=== PATIENT | male | born 1940 | race African-American/Black ===

== ENCOUNTER 2016-10-15 21:50 | Emergency (ER) | payer MEDICARE, OTHER ==
[~2016-10-15] VITALS: Ht 177.8 cm; Wt 81.6 kg
[~2016-10-15 21:50] MED LIST: NKM
--- NOTE | 2016-10-15 21:57 | Emergency Room Report ---
History of Present Illness General Chief Complaint: Pain Source: Patient, EMS Present Illness HPI Patient is 76-year-old male brought in by EMS after increased generalized weakness. Patient [place] bus [place]. Patient was noted to have a recent alcohol use. The patient denies any recent trauma. History is a markedly limited by patient's poor cooperation. Patient states he is having bilateral leg pain between his knees and his hips. He would not state how this began. History is markedly limited by patient's poor cooperation Allergies: Coded Allergies: PENICILLINS (Verified Allergy, Intermediate, RASH, 12/30/11) Patient History Reviewed Nursing Documentation: PMH: Agreed, PSxH: Agreed Nursing Documentation-PMH Past Medical History: No Stated History Hx Cardiac Problems: Yes Hx Cancer: No Hx Gastrointestinal Problems: Yes Hx Neurological Problems: Yes Hx Dizziness: Yes - PRIOR TO ADMISSION Hx Syncope: Yes - PRIOR TO ADMISSION Hx Numbness: Yes - PT SAYS HE PASSED OUT TODAY PTIOR TO ADMISSION Review of Systems All Other Systems: limited - by mental status Physical Exam Vital Signs Date Time Temp Pulse Resp B/P (MAP) Pulse Ox O2 Delivery O2 Flow Rate FiO2 10/15/16 21:39 97.5 75 18 118/75 98 Room Air Sp02 EP Interpretation: reviewed, normal General Appearance: normal inspection, well appearing, no apparent distress, alert, thin Head: atraumatic ENT: normal ENT inspection, hearing grossly normal, normal voice Neck: normal inspection, full range of motion, supple, no bony tend Respiratory: normal inspection, lungs clear, normal breath sounds, no respiratory distress, no retraction, no wheezing Cardiovascular #1: regular rate, rhythm, no edema Gastrointestinal: normal inspection, normal bowel sounds, non tender, soft, no guarding, no hernia Genitourinary: no CVA tenderness Musculoskeletal: normal inspection, back normal, normal range of motion Neurologic: normal inspection, alert, responsive, oriented - slurred speech Psychiatric: normal inspection, judgement/insight normal, mood/affect normal Skin: normal inspection, normal color, no rash Medical Decision Making Diagnostic Impression: Primary Impression: Alcohol intoxication Additional Impression: Peripheral neuropathy ER Course Patient presented for bilateral leg pain and altered mental status. Differential diagnosis included but was not limited to ischemic stroke, subarachnoid hemorrhage, hypoglycemia, spinal cord injury, neurodegenerative disorder, urinary tract infection, hypoxemia.Because of complexity of patient's case laboratory testing were ordered. Patient appears to be moderately intoxicated with alcohol. Patient was given IV thiamine for possible neuropathy. Patient was noted to have elevated blood alcohol. This was observed in the emergency department with improvement in his mental status. The patient was able to ambulate without assistance his time of discharge. Patient was able any with a steady gait Labs Test 10/15/16 22:40 White Blood Count 5.4 K/UL (4.8-10.8) Red Blood Count 3.64 M/UL (4.70-6.10) Hemoglobin 11.8 G/DL (14.2-18.0) Hematocrit 34.4 % (42.0-52.0) Mean Corpuscular Volume 95 FL (80-99) Mean Corpuscular Hemoglobin 32.4 PG (27.0-31.0) Mean Corpuscular Hemoglobin Concent 34.2 G/DL (32.0-36.0) Red Cell Distribution Width 13.2 % (11.6-14.8) Platelet Count 180 K/UL (150-450) Mean Platelet Volume 4.8 FL (6.5-10.1) Neutrophils (%) (Auto) 37.1 % (45.0-75.0) Lymphocytes (%) (Auto) 42.8 % (20.0-45.0) Monocytes (%) (Auto) 12.1 % (1.0-10.0) Eosinophils (%) (Auto) 5.1 % (0.0-3.0) Basophils (%) (Auto) 2.9 % (0.0-2.0) Prothrombin Time 10.0 SEC (9.30-11.50) Prothromb Time International Ratio 1.0 (0.9-1.1) Activated Partial Thromboplast Time 24 SEC (23-33) Sodium Level 144 mEQ/L (135-145) Potassium Level 3.6 mEQ/L (3.4-4.9) Chloride Level 110 mEQ/L (98-107) Carbon Dioxide Level 20 mEQ/L (20-30) Anion Gap 14 (5-15) Blood Urea Nitrogen 15 mg/dL (7-23) Creatinine 1.3 mg/dL (0.7-1.2) Estimat Glomerular Filtration Rate mL/min (>60) Glucose Level 89 mg/dL (74-106) Calcium Level 9.2 mg/dL (8.6-10.2) Total Bilirubin 0.4 mg/dL (0.0-1.2) Aspartate Amino Transf (AST/SGOT) 47 U/L (5-40) Alanine Aminotransferase (ALT/SGPT) 28 U/L (3-41) Alkaline Phosphatase 74 U/L (40-129) Troponin I < 0.30 ng/mL (<=0.30) Total Protein 8.3 g/dL (6.6-8.7) Albumin 4.4 g/dL (3.5-5.2) Globulin 3.9 g/dL Albumin/Globulin Ratio 1.1 (1.0-2.7) Lipase 46 U/L (< 60) Serum Alcohol 350 mg/dL Last Vital Signs Date Time Temp Pulse Resp B/P (MAP) Pulse Ox O2 Delivery O2 Flow Rate FiO2 10/15/16 21:39 97.5 75 18 118/75 98 Room Air Status: improved Disposition: HOME, SELF-CARE Condition: Stable Sb Alfonso Oct 15, 2016 21:56
[2016-10-15] MEDS ORDERED: Thiamine HCl 100 MG in D5W 55 ML IVPB ONE (22:00)
[2016-10-15] MEDS ORDERED: Thiamine HCl 100mg/ml 2 ml Inj ONE (22:46)
[2016-10-15 23:18] VITALS: BP 117/80
[2016-10-15 23:19] LABS: BASOPHILS % (AUTO) 2.9 % (0.0-2.0); EOSINOPHILS % (AUTO) 5.1 % (0.0-3.0); LYMPHOCYTES % (AUTO) 42.8 % (20.0-45.0); MEAN CORPUSCULAR HEMOGLOBIN 32.4 PG (27.0-31.0); MEAN CORPUSCULAR HGB CONC 34.2 G/DL (32.0-36.0); MEAN CORPUSCULAR VOLUME 95 FL (80-99); MEAN PLATELET VOLUME 4.8 FL (6.5-10.1); MONOCYTES % (AUTO) 12.1 % (1.0-10.0); NEUTROPHILS % (AUTO) 37.1 % (45.0-75.0); PLATELET COUNT 180 K/UL (150-450); RED BLOOD COUNT 3.64 M/UL (4.70-6.10); RED CELL DISTRIBUTION WIDTH 13.2 % (11.6-14.8); WHITE BLOOD COUNT 5.4 K/UL (4.8-10.8)
[2016-10-15 23:30] LABS: TROPONIN I < 0.30 ng/mL (<=0.30)
[2016-10-15 23:33] LABS: ALANINE AMINOTRANSFERASE 28 U/L (3-41); ALBUMIN/GLOBULIN RATIO 1.1 (1.0-2.7); ANION GAP 14 (5-15); ASPARTATE AMINO TRANSFERASE 47 U/L (5-40); CALCIUM 9.2 mg/dL (8.6-10.2); CARBON DIOXIDE 20 mEQ/L (20-30); CHLORIDE 110 mEQ/L (98-107); CREATININE 1.3 mg/dL (0.7-1.2); HEMOLYSIS 5; LIPASE 46 U/L (< 60); POTASSIUM 3.6 mEQ/L (3.4-4.9); SODIUM 144 mEQ/L (135-145); TOTAL PROTEIN 8.3 g/dL (6.6-8.7)
[2016-10-16 01:00] VITALS: BP 104/64
[2016-10-16 03:00] VITALS: BP 110/71
[2016-10-16 04:47] VITALS: BP 105/56
[2016-10-16 06:20] VITALS: BP 101/60
== END 2016-10-16 06:20 | disposition home or self-care (01) ==
LOC: EDBD 21:50 → EMR 22:02
DX: F10.129 Alcohol abuse with intoxication, unspecified (principal); G62.9 Polyneuropathy, unspecified; R41.82 Altered mental status, unspecified; M79.605 Pain in left leg; M79.604 Pain in right leg; Z88.0 Allergy status to penicillin
CPT/HCPCS: 36415; 80053; 83690; 84484; 85025; 85610; 85730; 96374; 99284; G0480; 80329

== ENCOUNTER 2017-02-01 13:04 | Outpatient (RCR) | payer MEDICARE, OTHER | END 2017-02-05 | disposition home or self-care (01) | LOC: WCC 13:04 | DX: L97.523 Non-pressure chronic ulcer of other part of left foot with necrosis of muscle (principal); M86.68 Other chronic osteomyelitis, other site; J44.9 Chronic obstructive pulmonary disease, unspecified; I25.10 Atherosclerotic heart disease of native coronary artery without angina pectoris; M19.90 Unspecified osteoarthritis, unspecified site; F17.200 Nicotine dependence, unspecified, uncomplicated; Z88.0 Allergy status to penicillin | CPT/HCPCS: G0277; G0463 ==

== ENCOUNTER 2017-02-08 11:35 | Outpatient (RCR) | payer MEDICARE, OTHER | END 2017-03-08 | disposition home or self-care (01) | LOC: WCC 11:35 | DX: L97.523 Non-pressure chronic ulcer of other part of left foot with necrosis of muscle (principal); M86.68 Other chronic osteomyelitis, other site; Z88.0 Allergy status to penicillin; J44.9 Chronic obstructive pulmonary disease, unspecified; I25.10 Atherosclerotic heart disease of native coronary artery without angina pectoris; M19.90 Unspecified osteoarthritis, unspecified site | CPT/HCPCS: G0277; G0463 ==

== ENCOUNTER 2017-03-09 10:00 | Outpatient (RCR) | payer MEDICARE, OTHER ==
[~2017-03-09] VITALS: Ht 167.6 cm; Wt 45.4 kg
[2017-03-10] MEDS ORDERED: Hydrocortisone 1% Cr 15gm TOPIC ONE (15:45)
== END 2017-04-05 | disposition home or self-care (01) ==
LOC: WCC 10:00
DX: M86.68 Other chronic osteomyelitis, other site (principal); L97.523 Non-pressure chronic ulcer of other part of left foot with necrosis of muscle; Z88.0 Allergy status to penicillin; J44.9 Chronic obstructive pulmonary disease, unspecified; I25.10 Atherosclerotic heart disease of native coronary artery without angina pectoris; M19.90 Unspecified osteoarthritis, unspecified site
CPT/HCPCS: G0277; G0463

== ENCOUNTER 2017-04-11 13:17 | Outpatient (RCR) | payer MEDICARE, OTHER | END 2017-05-06 | disposition home or self-care (01) | LOC: WCC 13:17 | DX: L97.523 Non-pressure chronic ulcer of other part of left foot with necrosis of muscle (principal); M86.68 Other chronic osteomyelitis, other site; L02.611 Cutaneous abscess of right foot; S90.821D Blister (nonthermal), right foot, subsequent encounter; Z88.0 Allergy status to penicillin; M19.90 Unspecified osteoarthritis, unspecified site; J44.9 Chronic obstructive pulmonary disease, unspecified; I25.10 Atherosclerotic heart disease of native coronary artery without angina pectoris | CPT/HCPCS: 10060; G0463 ==